=== PATIENT | male | born 1965 | race African-American/Black ===

== ENCOUNTER 2024-07-02 05:33 | Day surgery (SDC) | payer OTHER ==
[2024-06-20 12:55] VITALS: BP 128/85
[~2024-07-02] VITALS: Ht 175.3 cm; Wt 108.9 kg
[~2024-07-02 05:33] MED LIST: CEFADROXIL500 MG PO; VALSARTAN-HCTZ1 EAC1 PO
[2024-07-02] MEDS ORDERED: TRIAMCINOLONE ACETONIDE 40 MG/ML VIAL ONE (10:40)
[2024-07-02] MEDS ORDERED: CEFAZOLIN SODIUM 1,000 MG VIAL ONE (10:42)
[2024-07-02] MEDS ORDERED: BUPIVACAINE HCL 30 ML VIAL IJ ONE (12:30)
[2024-07-02] MEDS ORDERED: BACITRACIN 28.35 GM OINT.TUBE TOP ONE (12:30)
[2024-07-02] MEDS ORDERED: ISOPROPYL ALCOHOL 30 ML OUNCE TOP ONE (12:30)
== END 2024-07-02 15:20 | disposition home or self-care (01) ==
LOC: CIR.AMB 05:33
PROVIDERS: ATTEND Surgery Surgery of the Hand
DX: M72.0 Palmar fascial fibromatosis [Dupuytren] (principal); I10 Essential (primary) hypertension